=== PATIENT | male | born 1985 | race Asian ===

== ENCOUNTER 2016-11-01 10:27 | Emergency (ER) | payer OTHER ==
[2016-11-01 11:11] VITALS: BP 129/76; PULSE 98; RESP 18; TEMP 99.3; O2SAT 95
--- NOTE | 2016-11-01 11:28 | UCPHY ---
H & P Time Seen by Provider: 11/01/16 11:18 Patient Type: Established HPI/ROS: This patient has a cough over the past 24 hours with preceding URI symptoms consisting of nasal congestion. The total duration of symptoms been 5 days. Has low-grade fevers associated with this but no high fevers. He has no albuterol inhaler left from a prior bronchitis episode that he has been using a some relief of his associated wheezing. No other exacerbating factors. He complains of nasal congestion making sleep difficult. ROS: No significant fatigue. No high fevers or chills. No other constitutional symptoms. HEENT: No sore throat. No ear pain. No sinus pain. Neuro: No headache or confusion. Pulmonary: No pleuritic pain. No respiratory distress. No hemoptysis. 7 point ROS is otherwise negative. Past Medical/Surgical History: Prior bronchitis Smoking Status: Former smoker Physical Exam: Physical Exam Vital signs are normal. General: No acute distress HEENT: Nose: Clear discharge bilaterally. No sinus tenderness to percussion. Ears: External canals and tympanic membranes are clear with no erythema or abnormal findings bilaterally. Oropharynx: No erythema or exudates. No dysphonia. No drooling or stridor. Eyes: Pupils equal and react to light. Extraocular motions are intact. Lungs: Bilateral mild wheeze. Bilateral rhonchi. No rales. Cardiac: Regular rate and rhythm with no murmur gallop or rub Skin: No rash or pallor. Neuro: Alert with no focal deficits noted. Initial differential diagnosis: URI with cough with RAD, viral bronchitis, doubt pneumonia Constitutional: Initial Vital Signs Temperature (C) 37.4 C 11/01/16 11:08 Heart Rate 98 11/01/16 11:08 Respiratory Rate 18 11/01/16 11:08 Blood Pressure 129/76 H 11/01/16 11:08 O2 Sat (%) 95 11/01/16 11:08 O2 Delivery Mode Room Air Allergies/Adverse Reactions: No Known Allergies Allergy (Verified 11/01/16 11:05) Home Medications: Medication Instructions Recorded Albuterol Hfa Anes Only [Proair 2 puffs IH Q4 PRN #1 mdi 11/01/16 [facility] Icu (*)] Fluticasone Nasal [Flonase Nasal 2 sprays NASAL DAILY #1 mdi 11/01/16 [place] (RX)] MDM/Departure - MDM ED Course/Re-evaluation: Discussion: Patient appears well clinically. I counseled regarding viral bronchitis - Depart Disposition: Home, Routine, Self-Care Clinical Impression: Acute viral bronchitis Condition: Good Instructions: Acute Bronchitis (ED) Additional Instructions: Diagnosis: Acute viral bronchitis Plan: Humidifier Continue guaifenesin Albuterol inhaler for cough, wheeze or shortness of breath Flonase steroid nasal spray Return for any significant worsening despite treatment plan Referrals: NONE *PRIMARY CARE P,. [Primary Care Provider] - As per Instructions - PQRS PQRS Measurement: NA
== END 2016-11-01 11:36 | disposition home or self-care (01) ==
LOC: CED 10:27
DX: J20.8 Acute bronchitis due to other specified organisms (principal); Z87.891 Personal history of nicotine dependence
CPT/HCPCS: 99213-PO; G0463-PO

== ENCOUNTER 2016-11-23 08:41 | Emergency (ER) | payer OTHER ==
[2016-11-23 09:00] VITALS: BP 126/75; PULSE 68; RESP 16; TEMP 98.2; O2SAT 96
--- NOTE | 2016-11-23 09:04 | UCPHY ---
H & P Time Seen by Provider: 11/23/16 08:51 Patient Type: Established HPI/ROS: CHIEF COMPLAINT: Cough HPI: The patient is a 30-year-old male with no significant past medical history. The patient was seen in urgent care approximately 3 weeks ago and diagnosed with viral bronchitis. Since that time he states that his symptoms have improved greatly but he complains of persistent dry cough, worse at night. He denies fever or chest pain. He has tried [id number] Mucinex without significant relief. REVIEW OF SYSTEMS: Aside from elements discussed in the HPI, a comprehensive 10-point review of systems was reviewed and is negative. PMH: None significant. FAMILY HISTORY: Reviewed, non-contributory. SOCIAL HISTORY: Works as an engineer intern. Denies drug abuse. PHYSICAL EXAM: General:Patient is alert, in no acute distress. ENT:Eyes are normal to inspection. ENT inspection normal. Neck: Normal inspection. Full range of motion. Respiratory:No respiratory distress. Breath sounds normal bilaterally. Neuro: Oriented x3. Normal motor function. Normal sensory function. Smoking Status: Never smoked Constitutional: Initial Vital Signs Temperature (C) 36.8 C 11/23/16 08:58 Heart Rate 68 11/23/16 08:58 Respiratory Rate 16 11/23/16 08:58 Blood Pressure 126/75 H 11/23/16 08:58 O2 Sat (%) 96 11/23/16 08:58 O2 Delivery Mode Room Air Allergies/Adverse Reactions: No Known Allergies Allergy (Verified 11/23/16 09:00) Home Medications: Medication Instructions Recorded Benzonatate [Tessalon Pearles (RX)] 200 mg PO TID PRN #15 cap 11/23/16 HYDROcodone/HOMATROPINE HYCODA 1 tsp PO Q4-6PRN PRN #120 ml 11/23/16 [Hycodan Syrup (RX)] MDM/Departure - MDM ED Course/Re-evaluation: This patient presents with persistent cough after what sounds like a viral bronchitis. His lung sounds are clear on exam, he is in no distress and his vital signs are normal. I do not think a chest x-ray is indicated. I will discharge him home with a prescription for Tessalon and Hycodan syrup. He understands he needs to return should his symptoms worsen. - Depart Disposition: Home, Routine, Self-Care Clinical Impression: Cough Condition: Good Instructions: Acute Cough (ED) Additional Instructions: Follow-up with your primary doctor within 72 hours. Return to the Emergency Department for fever, chest pain, shortness of breath, increasing pain or other worsening of condition. Prescriptions: Benzonatate [Tessalon Pearles (RX)] 200 mg PO TID PRN #15 cap PRN Reason: Cough, Severe HYDROcodone/HOMATROPINE HYCODA [Hycodan Syrup (RX)] 1 tsp PO Q4-6PRN PRN #120 ml PRN Reason: Cough, Severe Referrals: Sedrick Tellez [Primary Care Provider] - As per Instructions - PQRS PQRS Measurement: 134: Depression screening and followup, PRIME MD-PHQ2 (12 years and older) Over the last 2 weeks, how often have you been bothered by any of the following problems? 1. Feeling down, depressed, or hopeless? 2. Little interest or pleasure in doing things? Patient answered no to both 1 and 2 130: Documentation of medications. Reviewed all patient medications, doses, route and frequency. 226: Do you smoke? No. 51: 18 years old and older with diagnosis of COPD, spirometry performance. Spirometry not performed; equipment not available. Patient has no history of COPD 52: 18 years old and older with COPD and symptoms of COPD or FEV1<60% predicted prescribed a B Agonist. Spirometry not performed; equipment not available.
== END 2016-11-23 09:05 | disposition home or self-care (01) ==
LOC: CED 08:41
DX: R05 Cough (principal)
CPT/HCPCS: 99214-PO; G0463-PO